=== PATIENT | female | born 1950 | race Caucasian/White ===

== ENCOUNTER 2016-11-16 12:56 | Outpatient (CLI) | payer MEDICARE, OTHER | END 2016-11-16 12:57 | disposition EMS.NT | DX: R00.2 Palpitations (principal) ==

== ENCOUNTER 2016-11-16 13:34 | Emergency (ER) | payer MEDICARE, OTHER ==
--- NOTE | 2016-11-16 14:14 | ED Physician Documentation ---
History of Present Illness - Stated complaint Stated Complaint: RAPID HEART RATE - Chief complaint Chief Complaint: Cardiac - History obtained from History obtained from: Patient - History of Present Illness Timing: Last night - Additonal information Additional information: 65 y/o female with heart palpitations since last night has called the ambulance and was evaluated in her home. She reports brief episodes of "irregular heart rate" and "rapid heart rate" She was not able to clock a rate. When medics arrived their initial rhythm strip showed a dysorganized rhythm with what looks like PAC's. The medic indicated that they did see about a 6 beat run of V-tach but were unable to capture this on the strip. They were able to capture some couplets. The patient Review of Systems Constitutional: denies: Fever, Chills, Myalgias Eyes: denies: Decreased vision Ears: denies: Ear pain Nose: denies: Rhinorrhea / runny nose, Congestion Throat: denies: Sore throat Cardiac: reports: Palpitations. 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 HEENT: Tonsil/Adenoidectomy - Present Medications Home Medications: Ambulatory Orders Medication Instructions Recorded Confirmed Amlodipine/Valsartan [Exforge 1 each PO DAILY 07/05/15 11/16/16 5-160 mg Tablet] Estradiol [Estrace] 0.5 mg PO DAILY 07/05/15 11/16/16 Aspirin 1 tab DAILY PRN 08/19/15 11/16/16 diazePAM [Valium] 5 mg PO TID PRN #15 tablet 08/19/15 11/16/16 - Allergies Allergies/Adverse Reactions: Allergies Allergy/AdvReac Type Severity Reaction Status Date / Time No Known Drug Allergies Allergy Verified 07/05/15 21:02 - Social History Does the pt smoke?: No Smoking Status: Never smoker Does the pt drink ETOH?: Yes Does the pt have substance abuse?: No - Immunizations Immunizations are current?: No Immunizations: TDAP >10years/unknown PD ED PE NORMAL - Vitals Vital signs reviewed: Yes (tachy and hypertensive ) - General General: Alert and oriented X 3, No acute distress, Well developed/nourished - HEENT HEENT: Atraumatic, PERRL, EOMI - Neck Neck: Supple, no meningeal sign, No bony TTP - Cardiac Cardiac: RRR, No murmur - Respiratory Respiratory: No respiratory distress, Clear bilaterally - Abdomen Abdomen: Soft, Non tender - Back Back: No CVA TTP, No spinal TTP - Derm Derm: Normal color, No rash Results - Vitals Vitals: Vital Signs - 24 hr 11/16/16 11/16/16 11/16/16 13:46 16:04 17:45 Temperature 36.4 C L 36.6 C Heart Rate 107 H 101 H 82 Respiratory 18 16 Rate Blood Pressure 139/89 H 127/96 H 123/69 O2 Saturation 99 99 99 Oxygen O2 Source Room air - EKG (time done) 1341 Rate: Rate (enter#) (73) Rhythm: NSR Ischemia: ST depression (inferior ) Other comments: Other comments (atrial premature complex) Compare to prior EKG: Changed from prior EKG (SPT 08-19-15 isolated t-wave inversion in III has occured and PAC's have occured) Computer interpretation: Agree with computer - Tele (time rhythm occurred) 1407 Telemetry / rhythm strip: V tach - Labs Labs: Laboratory Tests 11/16/16 11/16/16 11/16/16 13:40 13:45 13:45 WBC 6.1 RBC 4.85 Hgb 14.6 Hct 43.0 MCV 88.6 MCH 30.1 MCHC 34.0 RDW 13.5 Plt Count 257 MPV 8.8 Neut # 3.6 Lymph # 2.0 Bell # 0.4 Eos # 0.1 Baso # 0.0 Absolute Nucleated RBC 0.00 Nucleated RBCs 0.0 Sodium 138 Potassium 3.8 Chloride 106 Carbon Dioxide 27 Anion Gap 5.0 L BUN 21 H Creatinine 0.8 Estimated GFR (MDRD) 72 L Glucose 105 H Calcium 10.0 Total Bilirubin 1.6 H AST 17 ALT 21 Alkaline Phosphatase 63 Troponin I Total Protein 6.8 Albumin 4.2 Globulin 2.6 Albumin/Globulin Ratio 1.6 Lipase 29 TSH 1.22 Urine Color Urine Clarity Urine pH Ur Specific [place] Urine Protein Urine Glucose (UA) Urine Ketones Urine Occult Blood Urine Nitrite Urine Bilirubin Urine Urobilinogen Ur Leukocyte Esterase Ur Microscopic Review Urine Culture Comments 11/16/16 11/16/16 13:45 15:34 WBC RBC Hgb Hct MCV MCH MCHC RDW Plt Count MPV Neut # Lymph # Bell # Eos # Baso # Absolute Nucleated RBC Nucleated RBCs Sodium Potassium Chloride Carbon Dioxide Anion Gap BUN Creatinine Estimated GFR (MDRD) Glucose Calcium Total Bilirubin AST ALT Alkaline Phosphatase Troponin I < 0.04 Total Protein Albumin Globulin Albumin/Globulin Ratio Lipase TSH Urine Color YELLOW Urine Clarity CLEAR Urine pH 6.0 Ur Specific [place] <=1.005 Urine Protein NEGATIVE Urine Glucose (UA) NEGATIVE Urine Ketones NEGATIVE Urine Occult Blood NEGATIVE Urine Nitrite NEGATIVE Urine Bilirubin NEGATIVE Urine Urobilinogen 0.2 (NORMAL) Ur Leukocyte Esterase NEGATIVE Ur Microscopic Review NOT INDICATED Urine Culture Comments NOT INDICATED - Rads (name of study) 2 view chest Radiology: Prelim report reviewed (Impression: No evidence of active cardiopulmonary process.), EMP read indepedently, See rad report PD MEDICAL DECISION MAKING - ED course Complexity details: reviewed old records, reviewed results, re-evaluated patient , considered differential, d/w patient, d/w family, d/w telesales consultant (Jacky: faxed strips for review. After review of strips and EKG he recommends admission here, administration of metoprolol 50gm BID, Echo in am and stress testing with transfer if +. Dr. Quintanilla is consulted in the case and recommends transfer. ) ED course: 65 y/o female with symptomatic arrhythmia is found to have intermittent v-tach. She is administered magnesium 2gm IV and she is given metoprolol succinate 50mg PO. Arrangements are made for transfer to [facility] with Dr. Rain accepting . After administration of metoprolol her arrhythmia subsided as did her symptoms. Departure - Departure Disposition: 02 Transfer Acute Care Hosp Clinical Impression: Ventricular tachycardia (paroxysmal) Discharge Date/Time: 11/16/16 17:50
[2016-11-16 14:29] LABS: BASOPHILS % (AUTO) 0.7 %; EOSINOPHILS # (AUTO) 0.1 10^3/uL (0.0-0.7); EOSINOPHILS % (AUTO) 1.4 %; HGB - HEMOGLOBIN 14.6 g/dL (12.0-16.0); LYMPHOCYTES % (AUTO) 33.2 %; MEAN CORPUSCULAR HEMOGLOBIN 30.1 pg (27.0-31.0); MEAN CORPUSCULAR VOLUME 88.6 fL (81.0-99.0); MEAN PLATELET VOLUME 8.8 fL (7.9-10.8); MONOCYTES # (AUTO) 0.4 10^3/uL (0.0-1.0); MONOCYTES % (AUTO) 6.7 %; NEUTROPHILS # (AUTO) 3.6 10^3/uL (1.5-6.6); RED BLOOD COUNT 4.85 10^6/uL (4.20-5.40); RED CELL DISTRIBUTION WIDTH 13.5 % (12.0-15.0); UNCORRECTED WHITE BLOOD COUNT 6.1 x10^3/uL; WHITE BLOOD COUNT 6.1 x10^3/uL (4.8-10.8)
--- NOTE | 2016-11-16 14:35 | XRAY Preliminary Report ---
Exam: XR Chest 2 View PA/LAT IMPRESSION: No evidence of active cardiopulmonary process. [facility] SITE ID: [id number]
[2016-11-16 14:36] LABS: ALBUMIN/GLOBULIN RATIO 1.6 (1.0-2.2); BILIRUBIN,TOTAL 1.6 mg/dL (0.2-1.0); CREATININE 0.8 mg/dL (0.4-1.0); POTASSIUM 3.8 mmol/L (3.5-5.0); TOTAL PROTEIN 6.8 g/dL (6.7-8.2)
--- NOTE | 2016-11-16 14:38 | XRAY Report ---
EXAM: CHEST RADIOGRAPHY EXAM DATE: 11/16/2016 02:21 PM. CLINICAL HISTORY: Palpitations. COMPARISON: 08/19/2015. TECHNIQUE: 2 views. FINDINGS: Lungs/Pleura: No focal opacities evident. No pleural effusion. No pneumothorax. Normal volumes. Mediastinum: Heart and mediastinal contours are unremarkable. Other: None. IMPRESSION: No evidence of active cardiopulmonary process. [facility] Referring Provider Line: [phone] SITE ID: [id number]
[2016-11-16 15:38] LABS: BILIRUBIN,URINE NEGATIVE (NEGATIVE)
[2016-11-16 15:41] LABS: UA CHARGE (STRIP ONLY) YES; UR CULTURE IF IND NOT INDICATED
[2016-11-16] MEDS ORDERED: MAGNESIUM SULFATE 2 GRAM 50 ML IV ONE ×2 (15:46)
[2016-11-16] MEDS ORDERED: METOPROLOL SUCCINATE 50 MG TABLET PO STA (15:55)
[2016-11-16 17:45] VITALS: BP 123/69
== END 2016-11-16 17:50 | disposition short-term general hospital (02) ==
LOC: ED 13:34
DX: I47.2 Ventricular tachycardia (principal); I49.1 Atrial premature depolarization; I10 Essential (primary) hypertension; Z79.82 Long term (current) use of aspirin
CPT/HCPCS: 36415; 71020; 80053; 81003; 83690; 84443; 84484; 85025; 93005; 93010; 96374; 99284; A9270; 81001; 87086

== ENCOUNTER 2016-11-16 17:45 | Outpatient (CLI) | payer MEDICARE, OTHER | END 2016-11-16 17:46 | disposition short-term general hospital (02) | DX: I49.8 Other specified cardiac arrhythmias (principal); R00.2 Palpitations | CPT/HCPCS: A0425; A0426 ==

== ENCOUNTER 2018-02-09 21:36 | Emergency (ER) | payer MEDICARE, OTHER ==
[2018-02-09 22:23] LABS: BILIRUBIN,URINE NEGATIVE (NEGATIVE); GLUCOSE, URINE (UA) NEGATIVE (NEGATIVE); KETONES,URINE (UA) NEGATIVE (NEGATIVE); LEUKOCYTE ESTERASE, URINE NEGATIVE (NEGATIVE); NITRITE,URINE NEGATIVE (NEGATIVE); OCCULT BLOOD,URINE SMALL (NEGATIVE); PROTEIN,URINE NEGATIVE (NEGATIVE); UROBILINOGEN,URINE 0.2 (NORMAL) E.U./dL (NORMAL)
[2018-02-09 22:25] LABS: CLARITY,URINE CLEAR (CLEAR)
[2018-02-09 22:31] LABS: BACTERIA,URINE None Seen /HPF (None Seen); RBC,URINE 0-5 /HPF (0-5); SQUAMOUS EPITHELIAL CELL,UR RARE Squamous (<= Few)
[2018-02-09 23:15] LABS: BASOPHILS # (AUTO) 0.1 10^3/uL (0.0-0.1); EOSINOPHILS # (AUTO) 0.1 10^3/uL (0.0-0.7); EOSINOPHILS % (AUTO) 1.4 %; HGB - HEMOGLOBIN 13.9 g/dL (12.0-16.0); LYMPHOCYTES # (AUTO) 1.5 10^3/uL (1.5-3.5); LYMPHOCYTES % (AUTO) 17.2 %; MEAN CORPUSCULAR HEMOGLOBIN 29.5 pg (27.0-31.0); MEAN CORPUSCULAR HGB CONC 32.9 g/dL (32.0-36.0); MEAN CORPUSCULAR VOLUME 89.8 fL (81.0-99.0); MONOCYTES # (AUTO) 0.5 10^3/uL (0.0-1.0); NEUTROPHILS # (AUTO) 6.5 10^3/uL (1.5-6.6); NEUTROPHILS % (AUTO) 74.4 %; PLT - PLATELET COUNT 227 10^3/uL (130-450); RED BLOOD COUNT 4.71 10^6/uL (4.20-5.40); RED CELL DISTRIBUTION WIDTH 13.9 % (12.0-15.0); WHITE BLOOD COUNT 8.7 x10^3/uL (4.8-10.8)
[2018-02-09 23:27] LABS: ALBUMIN 3.7 g/dL (3.2-5.5); ALBUMIN/GLOBULIN RATIO 1.3 (1.0-2.2); MAGNESIUM 2.3 mg/dL (1.7-2.8); PHOSPHORUS 3.1 mg/dL (2.5-4.6); TOTAL PROTEIN 6.5 g/dL (6.7-8.2)
--- NOTE | 2018-02-09 23:54 | CT Preliminary Report ---
Exam: CT ABDOMEN/PELVIS W/O IMPRESSION: 1. Mildly obstructing 4 x 3 mm left vesicoureteral junction stone. 2. Right nephrolithiasis. 3. Diverticulosis. [facility] SITE ID: [id number]
--- NOTE | 2018-02-09 23:54 | CT Report ---
EXAM: CT ABDOMEN AND PELVIS (CT KUB) EXAM DATE: 02/09/2018 11:31 PM. CLINICAL HISTORY: Flank pain, urinary retention. COMPARISONS: None. TECHNIQUE: Routine axial helical CT imaging was performed through the abdomen and pelvis without IV c ontrast. Reconstructions: Coronal and sagittal. In accordance with CT protocol optimization, one or more of the following dose reduction techniques w ere utilized for this exam: automated exposure control, adjustment of mA and/or KV based on patient s ize, or use of iterative reconstructive technique. FINDINGS: Lung Bases: Unremarkable. Right Kidney/Ureter: There is a 5 mm calyceal stone at the mid aspect of the right kidney. No obstruc ting ureteral stones. Left Kidney/Ureter: There is a 4 x 3 mm stone at the vesicoureteral junction resulting in mild collec ting system dilatation. Other Solid Organs: Noncontrast images of the solid organs are grossly unremarkable. Gallbladder/Bile Ducts: Unremarkable. Peritoneal Cavity: Diverticulosis, no evidence of diverticulitis. Pelvic Organs: No bladder stones or wall thickening. Noncontrast images of the visualized pelvic orga ns are unremarkable. Cronin balloon catheter noted. Vasculature: Unremarkable. Other: None. IMPRESSION: 1. Mildly obstructing 4 x 3 mm left vesicoureteral junction stone. 2. Right nephrolithiasis. 3. Diverticulosis. [facility] Referring Provider Line: [phone] SITE ID: [id number]
--- NOTE | 2018-02-10 00:11 | ED Physician Documentation ---
PD HPI ABD PAIN - Stated complaint Stated Complaint: FEMALE /BK PX - Chief complaint Chief Complaint: General - History obtained from History obtained from: Patient - History of Present Illness Timing - onset: Today Timing - details: Gradual onset, Now resolved, Intermittant Quality: Cramping Location: Suprapubic Radiation: Left flank Associated symptoms: No: Fever, Nausea, Vomiting Similar symptoms before: Has not had sx before Recently seen: Not recently seen - Additional information Additional information: Patient is a 67 year old female with a history of interstitial cystitis who is presenting to the emergency department for abdominal pain, flank pain and urinary retention. Patient sates that her symptoms started today. Patient denies aggravating or alleviating factors and denies ever having symptoms like this before. Review of Systems Ten Systems: 10 systems reviewed and negative Constitutional: denies: Fever, Chills GI: reports: Abdominal Pain. 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 HEENT: Tonsil/Adenoidectomy - Present Medications Home Medications: Ambulatory Orders Medication Instructions Recorded Confirmed Amlodipine/Valsartan [Exforge 1 each PO DAILY 07/05/15 11/16/16 5-160 mg Tablet] Estradiol [Estrace] 0.5 mg PO DAILY 07/05/15 11/16/16 Aspirin 1 tab DAILY PRN 08/19/15 11/16/16 diazePAM [Valium] 5 mg PO TID PRN #15 tablet 08/19/15 11/16/16 Ketorolac [Toradol] 10 mg PO Q6H #10 tablet 02/10/18 - Allergies Allergies/Adverse Reactions: Allergies Allergy/AdvReac Type Severity Reaction Status Date / Time No Known Drug Allergies Allergy Verified 02/09/18 21:41 - Social History Does the pt smoke?: No Smoking Status: Never smoker Does the pt drink ETOH?: Yes Does the pt have substance abuse?: No - Immunizations Immunizations are current?: No Immunizations: TDAP >10years/unknown PD ED PE NORMAL - Vitals Vital signs reviewed: Yes - General General: Alert and oriented X 3, No acute distress - HEENT HEENT: Atraumatic, Moist mucous membranes - Neck Neck: Supple, no meningeal sign - Cardiac Cardiac: RRR - Respiratory Respiratory: No respiratory distress - Derm Derm: Normal color - Extremities Extremities: No deformity - Neuro Neuro: Alert and oriented X 3 Eye Opening: Spontaneous Motor: Obeys Commands Results - Vitals Vitals: Vital Signs - 24 hr 02/09/18 21:39 Temperature 36.7 C Heart Rate 68 Respiratory 18 Rate Blood Pressure 159/102 H O2 Saturation 98 Oxygen O2 Source Room air - Labs Labs: Laboratory Tests 02/09/18 02/09/18 02/09/18 22:00 23:05 23:05 WBC 8.7 RBC 4.71 Hgb 13.9 Hct 42.3 MCV 89.8 MCH 29.5 MCHC 32.9 RDW 13.9 Plt Count 227 MPV 8.0 Neut # (Auto) 6.5 Lymph # (Auto) 1.5 [place] # (Auto) 0.5 Eos # (Auto) 0.1 Baso # (Auto) 0.1 Absolute Nucleated RBC 0.00 Nucleated RBC % 0.0 Sodium 134 L Potassium 3.8 Chloride 103 Carbon Dioxide 24 Anion Gap 7.0 BUN 23 H Creatinine 1.0 Estimated GFR (MDRD) 55 L Glucose 118 H Calcium 10.0 Phosphorus 3.1 Magnesium 2.3 Total Bilirubin 1.0 AST 21 ALT 32 Alkaline Phosphatase 65 Total Protein 6.5 L Albumin 3.7 Globulin 2.8 Albumin/Globulin Ratio 1.3 Lipase 32 Urine Color YELLOW Urine Clarity CLEAR Urine pH 6.0 Ur Specific [place] <=1.005 Urine Protein NEGATIVE Urine Glucose (UA) NEGATIVE Urine Ketones NEGATIVE Urine Occult Blood SMALL H Urine Nitrite NEGATIVE Urine Bilirubin NEGATIVE Urine Urobilinogen 0.2 (NORMAL) Ur Leukocyte Esterase NEGATIVE Urine RBC 0-5 Urine WBC 0-3 Ur Squamous Epith Cells RARE Squamous Urine Bacteria None Seen Ur Microscopic Review INDICATED Urine Culture Comments NOT INDICATED - Rads (name of study) ct abd pelvis Radiology: Final report received (mildly obstucting 4mm by 3mm stone of left uvj ) PD MEDICAL DECISION MAKING - ED course Complexity details: reviewed old records, reviewed results, re-evaluated patient , considered differential, d/w patient, d/w family ED course: Patient was seen and examined at bedside. bladder scanner was performed and was above 500. catheter was placed and about a liter of urine was produced. labs were drawn (patient took a daily supplement of magnesium). Imaging was ordered. when patient returned from imaging the results were reviewed. Patient was found to have a left sided stone. Patient was made aware of the findings. Patient was given detailed discharge and follow up instructions and was stable for discharge with outpatient follow up. Departure - Departure Disposition: 01 Home, Self Care Clinical Impression: Renal colic on right side Condition: Good Instructions: ED Stone Renal W Colic Follow-Up: DURGA MALIK DO [Primary Care Provider] - Within 3 Days Prescriptions: Ketorolac [Toradol] 10 mg PO Q6H #10 tablet Comments: Your symptoms are being caused by a kidney stone and urinary retention. Your stone was 3mm by 4mm and has a greater than 90% of passing on its own. You should stay well hydrated over the next few days. You should follow up with your doctor if your symptoms don't improve and may eventually need to see a urologist if this becomes more recurrent. You may return to the emergency department at any time for new, worsening or uncontrollable symptoms.
[2018-02-10 02:06] VITALS: BP 150/81
== END 2018-02-10 00:20 | disposition home or self-care (01) ==
LOC: ED 21:36
DX: N20.0 Calculus of kidney (principal); K57.90 Diverticulosis of intestine, part unspecified, without perforation or abscess without bleeding; I10 Essential (primary) hypertension; E78.00 Pure hypercholesterolemia, unspecified; Z79.82 Long term (current) use of aspirin
CPT/HCPCS: 36415; 51702; 51798; 74176; 80053; 81001; 81003; 83690; 83735; 84100; 85025; 87086; 99283; 99284

== ENCOUNTER 2018-04-15 11:48 | Outpatient (CLI) | payer MEDICARE, OTHER ==
--- NOTE | 2018-04-15 12:25 | CT Report ---
Procedure Date: 04/15/2018 Accession Number: [id number] / [id number] Procedure: CT - Abdomen/Pelvis W/O CPT Code: FULL RESULT: EXAM: CT ABDOMEN AND PELVIS (CT KUB) EXAM DATE: 04/15/2018 12:01 PM. CLINICAL HISTORY: NEPHROLITHIASIS. Right flank pain. COMPARISONS: 09 february 2018. TECHNIQUE: Routine axial helical CT imaging was performed through the abdomen and pelvis without IV contrast. Reconstructions: Coronal and sagittal. In accordance with CT protocol optimization, one or more of the following dose reduction techniques were utilized for this exam: automated exposure control, adjustment of mA and/or KV based on patient size, or use of iterative reconstructive technique. FINDINGS: Lung Bases: Unremarkable. Right Kidney/Ureter: Right mid renal stone cluster measuring together about 3 x 5 millimeter, unchanged. No ureteral stone or hydronephrosis. Otherwise unremarkable. left Kidney/Ureter: No stones, hydronephrosis, or hydroureter. No perinephric fat stranding. Other Solid Organs: Small cyst or hemangioma in the liver. Noncontrast images of the solid organs otherwise are grossly unremarkable. Gallbladder/Bile Ducts: Unremarkable. Peritoneal Cavity: Moderate colonic diverticulosis. No diverticulitis at this time. Normal appendix. No free fluid, free air, or lymphadenopathy. Pelvic Organs: No bladder stones or wall thickening. Noncontrast images of the visualized pelvic organs are unremarkable. Vasculature: Unremarkable. Other: None. IMPRESSION: 1. Interval passage of left UVJ stone. 2. No change of small right renal stone cluster measuring together about 3 x 5 mm. No hydronephrosis. 3. Moderate diverticulosis and other chronic or incidental findings. [facility]
== END 2018-04-15 11:49 | disposition home or self-care (01) ==
LOC: DI 11:48
PROVIDERS: ATTEND Urology
DX: N20.2 Calculus of kidney with calculus of ureter (principal)
CPT/HCPCS: 74176

== ENCOUNTER 2021-01-31 04:46 | Emergency (ER) | payer MEDICARE, OTHER ==
--- OUTSIDE RECORDS SUMMARY | 2021-01-31 04:51 | EXTERNAL MEDICAL SUMMARY RPT | Continuity of Care Document ---
:1950 Demographics Phone Unavailable Preferred Language Kazakh Marital Status Unknown Muslim Affiliation Unknown Race Unknown Ethnic Group Unknown Author Organization [facility] Address [address] [phone] Phone Care Team Providers Name Role Phone Inkunj Unavailable Unavailable Allergies Encounters Medications Problems date description facility [id number] Encounter for screening mammogram for [facility] neoplasm of Results
--- OUTSIDE RECORDS SUMMARY | 2021-01-31 04:58 | EXTERNAL MEDICAL SUMMARY RPT | Continuity of Care Document ---
:1950 Demographics Phone Unavailable Preferred Language Norwegian Marital Status Unknown Mosque Affiliation Unknown Race Unknown Ethnic Group Unknown Author Organization [facility] Address [address] [phone] Phone Care Team Providers Name Role Phone Nikunj Unavailable Unavailable Allergies Encounters Medications Problems date description facility [id number] Encounter for screening mammogram for [facility] neoplasm of Results
[2021-01-31] MEDS ORDERED: ONDANSETRON 4 MG/2 ML VIAL IVP STA (05:29)
[2021-01-31 05:33] LABS: BASOPHILS % (AUTO) 0.4 %; EOSINOPHILS % (AUTO) 0.3 %; HCT - HEMATOCRIT 49.3 % (37.0-47.0); HGB - HEMOGLOBIN 16.9 g/dL (12.0-16.0); LYMPHOCYTES # (AUTO) 1.3 10^3/uL (1.5-3.5); LYMPHOCYTES % (AUTO) 11.7 %; MEAN CORPUSCULAR HEMOGLOBIN 30.7 pg (27.0-31.0); MEAN CORPUSCULAR HGB CONC 34.3 g/dL (32.0-36.0); MEAN CORPUSCULAR VOLUME 89.5 fL (81.0-99.0); MEAN PLATELET VOLUME 9.7 fL (7.9-10.8); MONOCYTES # (AUTO) 0.4 10^3/uL (0.0-1.0); NEUTROPHILS # (AUTO) 9.1 10^3/uL (1.5-6.6); NEUTROPHILS % (AUTO) 83.1 %; PLT - PLATELET COUNT 248 10^3/uL (130-450); RED BLOOD COUNT 5.51 10^6/uL (4.20-5.40); RED CELL DISTRIBUTION WIDTH 13.2 % (12.0-15.0)
[2021-01-31 05:49] LABS: ALBUMIN 4.4 g/dL (3.2-5.5); ALBUMIN/GLOBULIN RATIO 1.3 (1.0-2.2); BILIRUBIN,TOTAL 2.1 mg/dL (0.2-1.0); CALCIUM 9.7 mg/dL (8.5-10.3); CREATININE 0.9 mg/dL (0.4-1.0); TOTAL PROTEIN 7.7 g/dL (6.7-8.2)
--- NOTE | 2021-01-31 06:26 | ED Physician Documentation ---
PD HPI ABD PAIN - Stated complaint Stated Complaint: ABD PX, HIGH BP - Chief complaint Chief Complaint: Abd Pain - History obtained from History obtained from: Patient - History of Present Illness Timing - onset: Enter time (0200), Last night Timing - duration: Hours Timing - details: Gradual onset, Still present Quality: Sharp, Pain Location: Epigastric Radiation: Chest Worsened by: Moving, Position, Palpation Associated symptoms: Nausea, Vomiting Similar symptoms before: No diagnosis Recently seen: Not recently seen - Additional information Additional information: 70-year-old female who is developed some epigastric pain nausea and vomiting has become concerned about the elevation of her blood pressure. She has had no further nausea or vomiting but still has elevated blood pressure. Review of Systems Constitutional: denies: Fever Ears: denies: Ear pain Nose: denies: Congestion Throat: denies: Sore throat Cardiac: reports: Chest pain / pressure. denies: Palpitations Respiratory: denies: Dyspnea, Cough GI: reports: Abdominal Pain, Nausea, Vomiting. 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 HEENT: Tonsil/Adenoidectomy - Present Medications Home Medications: Ambulatory Orders Medication Instructions Recorded Confirmed Amlodipine/Valsartan [Exforge 1 each PO DAILY 07/05/15 11/16/16 5-160 mg Tablet] Estradiol [Estrace] 0.5 mg PO DAILY 07/05/15 01/31/21 Aspirin 1 tab DAILY PRN 08/19/15 11/16/16 Atorvastatin [Lipitor] 10 mg PO DAILY 01/31/21 01/31/21 Metoprolol Succinate [Toprol Xl] 25 mg PO BID 01/31/21 01/31/21 - Allergies Allergies/Adverse Reactions: Allergies Allergy/AdvReac Type Severity Reaction Status Date / Time No Known Drug Allergies Allergy Verified 01/31/21 04:55 - Social History Does the pt smoke?: No Smoking Status: Never smoker Does the pt drink ETOH?: Yes Does the pt have substance abuse?: No - Immunizations Immunizations are current?: No Immunizations: TDAP >10years/unknown - POLST Patient has POLST: No PD ED PE NORMAL - Vitals Vital signs reviewed: Yes (hypertensive ) - General General: Alert and oriented X 3, No acute distress, Well developed/nourished - HEENT HEENT: Atraumatic, PERRL, EOMI - Neck Neck: Supple, no meningeal sign - Cardiac Cardiac: RRR, No murmur - Respiratory Respiratory: No respiratory distress, Clear bilaterally - Abdomen Abdomen: Normal bowel sounds, Soft, Non distended, No organomegaly, Other (mild epigastric tenderness ) - Back Back: No CVA TTP, No spinal TTP - Derm Derm: Normal color, Warm and dry, No rash - Extremities Extremities: No deformity, No edema - Neuro Neuro: Alert and oriented X 3, program rep 2-12 intact, No motor deficit, No sensory deficit, Normal speech Eye Opening: Spontaneous Motor: Obeys Commands Verbal: Oriented GCS Score: 15 - Psych Psych: Normal mood, Normal affect Results - Vitals Vitals: Vital Signs - 24 hr 01/31/21 01/31/21 01/31/21 04:52 05:30 06:16 Temperature 36.0 C L 37 C Heart Rate 89 78 68 Respiratory 18 18 23 Rate Blood Pressure 152/98 H 140/83 H 119/77 Blood Pressure 152/86 H [Left] O2 Saturation 97 98 94 01/31/21 07:01 Temperature Heart Rate 78 Respiratory 24 Rate Blood Pressure 136/74 H Blood Pressure [Left] O2 Saturation 96 Oxygen O2 Source Room air - EKG (time done) 0504 Rate: Rate (enter#) (79) Rhythm: Other (sinus arrhythmia) Ischemia: Non specific changes Compare to prior EKG: Changed from prior EKG (SPT 11-16-2016 the inverted T waves inferiorly have resolved. ) Computer interpretation: Agree with computer - Labs Labs: Laboratory Tests 01/31/21 01/31/21 01/31/21 05:20 05:20 05:20 WBC 11.0 H RBC 5.51 H Hgb 16.9 H Hct 49.3 H MCV 89.5 MCH 30.7 MCHC 34.3 RDW 13.2 Plt Count 248 MPV 9.7 Neut # (Auto) 9.1 H Lymph # (Auto) 1.3 L [place] # (Auto) 0.4 Eos # (Auto) 0.0 Baso # (Auto) 0.0 Absolute Nucleated RBC 0.00 Nucleated RBC % 0.0 Sodium 141 Potassium 4.0 Chloride 104 Carbon Dioxide 26 Anion Gap 11.0 BUN 15 Creatinine 0.9 Estimated GFR (MDRD) 62 L Glucose 132 H Calcium 9.7 Total Bilirubin 2.1 H AST 23 ALT 31 Alkaline Phosphatase 47 Troponin I High Sens 3.9 Total Protein 7.7 Albumin 4.4 Globulin 3.3 Albumin/Globulin Ratio 1.3 Lipase 26 PD MEDICAL DECISION MAKING - ED course Complexity details: reviewed results, re-evaluated patient, considered differential, d/w patient ED course: 70 y/o female with abdominal pain received a dose of zofran prior to my evaluation and is asymptomatic now. Departure - Departure Disposition: 01 Home, Self Care Clinical Impression: Abdominal pain Qualifiers: Abdominal location: epigastric Qualified Code(s): R10.13 - Epigastric pain Hypertension Qualifiers: Hypertension type: essential hypertension Qualified Code(s): I10 - Essential (primary) hypertension Condition: Stable Instructions: ED Abdominal Pain Unkn Cause, ED HTN Established Follow-Up: DURGA MALIK DO [Primary Care Provider] - Discharge Date/Time: 01/31/21 07:05
[2021-01-31 07:01] VITALS: BP 136/74
== END 2021-01-31 07:05 | disposition home or self-care (01) ==
LOC: ED 04:46
DX: R10.13 Epigastric pain (principal); R11.2 Nausea with vomiting, unspecified; I10 Essential (primary) hypertension; Z79.82 Long term (current) use of aspirin
CPT/HCPCS: 36415; 80053; 83690; 84484; 85025; 93005; 96374; 99284

== ENCOUNTER 2023-01-22 15:46 | Emergency (ER) | payer MEDICARE, OTHER ==
[2023-01-22 16:06] VITALS: BP 149/92
--- OUTSIDE RECORDS SUMMARY | 2023-01-22 16:20 | EXTERNAL MEDICAL SUMMARY RPT | Continuity of Care Document ---
Author Name Unknown Address [address] [place] [address] Phone Organization [facility] Address [address] [place] [phone] Phone Problems date description facility 2022-10-28 08:44 Encounter for screen ing mammogram for malignant neoplasm of [facility]
--- NOTE | 2023-01-22 16:31 | ED Physician Documentation ---
History of Present Illness - Stated complaint Stated Complaint: TOE INJURY - Chief complaint Chief Complaint: Ext Problem - Additonal information Additional information: 72-year-old female presents emergency department for evaluation of acute left ring toe pain sustained when she stubbed her foot on the couch at home. No history of previous injury. Review of Systems Musculoskeletal: reports: Extremity pain PD PAST MEDICAL HISTORY - Past Medical History Cardiovascular: Hypertension, High cholesterol Respiratory: Asthma, Pneumonia HEENT: Glaucoma - Past Surgical History Past Surgical History: Yes /[employer]: Hysterectomy HEENT: Tonsil/Adenoidectomy - Present Medications Home Medications: Ambulatory Orders Medication Instructions Recorded Confirmed Estradiol [Estrace] 0.5 mg PO DAILY 07/05/15 01/22/23 Atorvastatin [Lipitor] 10 mg PO DAILY 01/31/21 01/22/23 Metoprolol Succinate [Toprol Xl] 25 mg PO BID 01/31/21 01/22/23 HYDROcod/ACETAM 5/325 [[place] 5/325] 1 tablet PO BID PRN #10 tablet 01/22/23 - Allergies Allergies/Adverse Reactions: Allergies Allergy/AdvReac Type Severity Reaction Status Date / Time No Known Drug Allergies Allergy Verified 01/22/23 16:05 - Social History Does the pt smoke?: No Smoking Status: Never smoker Does the pt drink ETOH?: Yes Does the pt have substance abuse?: No - Immunizations Immunizations are current?: No Immunizations: TDAP >10years/unknown - POLST Patient has POLST: No PD ED PE NORMAL - General General: Alert and oriented X 3, No acute distress - Extremities Extremities: Other (Tenderness and ecchymosis of the left ring toe. No obvious deformity. Neurovascularly intact. No pain with palpation of the foot L otherwise. 2+ DP pulse.) Results - Vitals Vitals: Vital Signs - 24 hr 01/22/23 16:01 Temperature 36.8 C Heart Rate 70 Respiratory 16 Rate Blood Pressure 149/92 H O2 Saturation 97 Oxygen O2 Source Room air - Rads (name of study) left foot Relevant Findings:: EMP independent interpretation of test (Toe proximal phalanx fractureMildly displaced left fourth) PD Medical Decision Making - ED course Complexity details: reviewed results ED course: Very pleasant 72-year-old female presents emergency department for evaluation Of a left fourth toe injury sustained when she stubbed her foot. On exam she has tenderness of this digit with mild ecchymosis but no obvious deformity. An x- ray is interpreted by myself does show a mildly displaced fracture of the proxi mal phalanx. I do not identify any other fracture on x-ray imaging. I did grover tape this toe to the middle toe. She was given a postop shoe. I encouraged Tylenol and ibuprofen. I also wrote her a limited prescription for Hydrocodone. She is traveling to [place] tomorrow but is encouraged to follow with orthopedics upon return. Usual emergent return precautions otherwise discussed Departure - Departure Disposition: Home, Self Care Clinical Impression: Fracture of proximal phalanx of toe of left foot Condition: Stable Record reviewed to determine appropriate education?: Yes Instructions: ED Fx Toe Closed Prescriptions: HYDROcod/ACETAM 5/325 [[place] 5/325] 1 tablet PO BID PRN #10 tablet PRN Reason: Pain Comments: Robyn use stubbed your toe on the wooden edge of your couch. You do have a mildly displaced left proximal phalanx fracture of the ring toe. The general treatment for this is grover taping the toe and wearing a hard sole postop shoe like we have given you. In most cases there is no specific treatment for these types of fractures they simply heal. I do recommend you ask your primary care provider for referral to orthopedics so that you can be seen when you return from [place]. Please try and enjoy your trip and I do recommend that you take Tylenol or ibuprofen for discomfort. For more severe pain I have prescribed some hydrocodone to the [facility] in [place]. Discharge Date/Time: 01/22/23 16:43
--- NOTE | 2023-01-22 16:35 | XRAY Report ---
PROCEDURE: Foot 3 View LT INDICATIONS: STUBBED/PAIN/TENDERNESS L FOOT TECHNIQUE: 3 views of the foot were acquired. COMPARISON: None. FINDINGS: Bones: Oblique fracture, minimally displaced, shaft of proximal phalanx of fourth toe. No other frac tures or dislocations. Soft tissues: No suspicious soft tissue calcifications or masses. IMPRESSION: Proximal phalanx fourth toe fracture. Reviewed by: Joaquin Ordonez MD on 01/22/2023 4:34 PM PDT Approved by: Joaquin Ordonez MD on 01/22/2023 4:34 PM PDT Station ID: [id number]
== END 2023-01-22 16:43 | disposition home or self-care (01) ==
LOC: ED 15:46
DX: S92.512A Displaced fracture of proximal phalanx of left lesser toe(s), initial encounter for closed fracture (principal); W22.03XA Walked into furniture, initial encounter; Y92.009 Unspecified place in unspecified non-institutional (private) residence as the place of occurrence of the external cause; I10 Essential (primary) hypertension
CPT/HCPCS: 99283; 99284